=== PATIENT | female | born 1960 | race Caucasian/White ===

== ENCOUNTER 2022-01-08 06:12 | Emergency (ER) | payer BC ==
[2022-01-08] MEDS ORDERED: Ondansetron 4 MG/2 ML SDV IVPUSH ONE (06:44)
[2022-01-08] MEDS ORDERED: HYDROmorphone 0.5 MG/0.5 ML Syringe IVPUSH ONE (06:44)
[2022-01-08] MEDS ORDERED: Sodium Chloride 0.9% 100 ML IV ONE (07:08)
[2022-01-08 07:11] LABS: ESTIMATED GFR 57 mL/min (>60)
[2022-01-08] MEDS ORDERED: Iopamidol 612 MG/ML 100 ML Bottle IV SCH (07:15)
[2022-01-08] MEDS ORDERED: HYDROmorphone 1 MG/ML Syringe IVPUSH ONE (07:15)
[2022-01-08] MEDS: Sodium Chloride 0.9% 10 ML Syringe FLUSH ONE ×2 (07:27→07:59)
[2022-01-08 08:10] LABS: CORONAVIRUS COVID-19 NAA NEGATIVE (NEGATIVE)
[2022-01-08] MEDS ORDERED: fentaNYL 100 MCG/2 ML SDV IVPUSH ONE (08:48)
[2022-01-08] MEDS ORDERED: Prochlorperazine 10 MG/2 ML SDV IVPUSH ONE (08:48)
== END 2022-01-08 11:50 | disposition home or self-care (01) ==
LOC: JP.ED 06:12
DX: K80.20 Calculus of gallbladder without cholecystitis without obstruction (principal); Z20.822 Contact with and (suspected) exposure to COVID-19
CPT/HCPCS: 0241U; 36415; 74177; 76705; 80053; 81001; 83605; 83690; 85025; 86140; 96374; 96375; 96376; 99284; J0780; J1170; J2405; J3010; J3490; Q9967

== ENCOUNTER 2022-01-11 10:37 | Emergency (ER) | payer BC | END 2022-01-11 11:00 | disposition home or self-care (01) | LOC: JP.ED 10:37 | DX: Z53.21 Procedure and treatment not carried out due to patient leaving prior to being seen by health care provider (principal) ==